=== PATIENT | female | born 1965 | race Caucasian/White ===

== ENCOUNTER 2024-06-22 13:51 | Emergency (ER) | payer BC, SELFPAY ==
[2024-06-22 13:56] VITALS: BP 146/82
--- NOTE | 2024-06-22 14:39 | ED.MUSCINJ ---
HPI-Injury
General
Chief Complaint: Musculo-Skeletal Complaint
Source: patient
Exam Limitations: none
Time Seen by Provider: 06/22/24 14:27
History of Present Illness-Injury
Initial Injury comments:
59-year-old [id number] female presents complaining of left shoulder and elbow pain after a fall. She slipped on the sidewalk and fell on her left arm. She did not hit her head. No neck pain. She notes shoulder and elbow pain on the left
arm.
Past History
Past History
ED Past Surgical History: Other (shell malik)
Social History
Tobacco: Non-smoker
Alcohol: None
Drug: None
Personal:
Living: with family
Employment: Employed
Family History
Family History: Other
Phy Exam
Physical Exam
Physical Exam:
General: Well-appearing female no acute respiratory distress
HEENT: Normocephalic atraumatic
Musculoskeletal exam: Left shoulder is tender to palpation and left elbow is also tender
No deformities noted.
Vascular: 2+ radial pulse left wrist
Injury Course
Orders/Labs/Results
Orders:
Orders
06/22/24 14:01
Shoulder, Left, Trauma CR [CR Shoulder, Trauma - Left] Urgent
Comment:
Reason For Exam: pain injury
06/22/24 14:33
CR Elbow - Left Min 3 Views Urgent
Comment:
Reason For Exam: pain after fall
*Critical Care Note
Total Time (30-74mins, 75-104mins- exclusive of procedures): Not Applicable
Update Note
Update Note:
Mechanical fall left arm pain. Question fracture versus contusion
X-rays left shoulder and elbow pending.
Left shoulder x-rays demonstrate greater tuberosity fracture with slight extension into the proximal humerus. This is nondisplaced. There is no elbow fracture noted. Patient placed in a sling. Will advise orthopedic follow-up. Pain medicine
prescribed
ED Attending Note
-
Portions of this chart may have been created with voice recognition software.� Occasional wrong word or��sound alike� substitutions may have occurred due to the inherent limitations of voice recognition software.
Discharge Plan
Departure
Patient Disposition: Home (Routine Discharge)
Date of Disposition: 06/22/24
Time of Disposition: 15:02
Patient with high blood pressure during this ER visit?: No
Discharge Problem:
Fracture of proximal end of humerus
Instructions: Muscle and Bone Pain (DC)
Prescriptions:
New
oxycodone-acetaminophen [Percocet] 5-325 mg tablet
1 tab PO TID PRN (Reason: Pain) Qty: 10 0RF
Referrals:
Zana Torres MD [Active] -
Brayden Herron CRNP [Family Provider] -
Activity Restrictions/Additional Instructions:
Use sling for support. You may ice for swelling or pain. Use prescribed medicine as needed for severe pain. Return if worse otherwise follow-up with orthopedics
Interventions
Interventions:
*Risk Screen - Suicide Last Done: 06/22/24 14:35
*General Assessment Last Done: 06/22/24 14:35
*ED COVID-19 Vaccine History Last Done: 06/22/24 14:35
ED-Musculoskeletal Assessment Last Done: 06/22/24 14:36
Discharge Date and Time
Print Language: SWEDISH
[2024-06-22 15:09] VITALS: BP 120/85
== END 2024-06-22 15:11 | disposition home or self-care (01) ==
LOC: EMR 13:51
PROVIDERS: EMERGENCY PHYSICIAN Emergency Medicine; FAMILY PHYSICIAN Nurse Practitioner Family
DX: S42.255A Nondisplaced fracture of greater tuberosity of left humerus, initial encounter for closed fracture (principal); M25.522 Pain in left elbow; W01.0XXA Fall on same level from slipping, tripping and stumbling without subsequent striking against object, initial encounter
CPT/HCPCS: 99283; 73030; 73080

== ENCOUNTER → 2024-06-29 07:26 | Outpatient (REF) | payer BC, SELFPAY | LOC: RAD 07:26 | PROVIDERS: ATTENDING PHYSICIAN Orthopaedic Surgery; FAMILY PHYSICIAN Nurse Practitioner Family | DX: M25.512 Pain in left shoulder (principal) | CPT/HCPCS: 73200 ==

== ENCOUNTER → 2025-01-03 13:49 | Outpatient (REF) | payer OTHER, SELFPAY | LOC: HWWDC 13:49 | PROVIDERS: ATTENDING PHYSICIAN Obstetrics & Gynecology; FAMILY PHYSICIAN Nurse Practitioner Family | DX: Z12.31 Encounter for screening mammogram for malignant neoplasm of breast (principal); Z85.3 Personal history of malignant neoplasm of breast | CPT/HCPCS: 77063; 77067 ==